=== PATIENT | female | born 1960 | race Caucasian/White ===

== ENCOUNTER 2022-07-13 15:22 | Outpatient (CLI) | payer OTHER | END 2022-07-13 15:23 | disposition home or self-care (01) | LOC: NAV RAD 15:22 | PROVIDERS: ATTEND Family Medicine | DX: Z02.71 Encounter for disability determination (principal); M47.812 Spondylosis without myelopathy or radiculopathy, cervical region; M47.816 Spondylosis without myelopathy or radiculopathy, lumbar region; M43.16 Spondylolisthesis, lumbar region; Z87.39 Personal history of other diseases of the musculoskeletal system and connective tissue | CPT/HCPCS: 72040; 72100 ==